=== PATIENT | male | born 1970 | race Caucasian/White ===

== ENCOUNTER → 2023-04-15 14:32 | Outpatient (REF) | payer BC, SELFPAY | LOC: RAD 14:32 | PROVIDERS: ATTENDING PHYSICIAN Family Medicine | DX: S20.211A Contusion of right front wall of thorax, initial encounter (principal) | CPT/HCPCS: 71101 ==

== ENCOUNTER 2023-11-29 00:53 | Emergency (ER) | payer BC, SELFPAY ==
[2023-11-29] VITALS (10 sets, daily range): BP systolic 79–104; BP diastolic 53–72; BMI 27.7
--- NOTE | 2023-11-29 01:20 | ED.GENMED ---
History of Present Illness
<CHELA Fitzpatrick - Last Filed: 11/29/23 02:15>
General
Chief Complaint: Fainting/Passed Out
Source: patient
Exam Limitations: none
Time Seen by Provider: 11/29/23 01:00
Nursing documentation reviewed up to this point in time: agreed with
History of Present Illness
History of Present Illness:
Patient is 53yo M w/ PMH of HTN and HLD who presents to ED after passing out & falling at home. Arrived by EMS. He had about 6 beers while watching sports game tonight. States he was going up to bed when he just passed out w/o warning. Denies
presyncope feelings of dizziness, lightheaded, nausea, fatigue, or vision/hearing changes. Pt denies previous episodes of fainting. Pt hit head during fall. Reports 1 episode of moderate amount of loose stool after passing out. He denies any recent
illness or travel. Notes daughter currently has ear infx.
Past History
<Shar Martinez DO - Last Filed: 11/29/23 02:25>
Past History
ED Past Medical History: Hypercholesterolemia; Negative HTN, NIDDM or MA
Social History
Tobacco: Non-smoker
Alcohol: Occasional
Drug: None
Personal:
Living: with family
Review of Systems
<CHELA Fitzpatrick - Last Filed: 11/29/23 02:15>
Review of Systems
Constitutional: Denies fever, fatigue or chills
Respiratory: Denies cough or trouble breathing
Cardiac: Reports syncope; Denies chest pain or palpitations
ABD/GI: Reports diarrhea; Denies abdominal pain, nausea, vomiting or anorexia
: Reports no symptoms
Musculoskeletal: Denies muscle pain
Neurological: Denies dizzy, headache, weakness or numbness
Phy Exam
<CHELA Fitzpatrick - Last Filed: 11/29/23 02:15>
General Physical Exam
General Habitus: normal
General Mental: confused
ENT Exam
ENT Exam: other (oval-shaped, tennis ball-sized bump of L side of back of head. Mildly tender. )
Eye Exam
Eye Exam: PERRL
Cardiovascular Exam
Cardiovascular Exam: regular rate/rhythm, no edema, no gallop, no JVD and no murmur
Pulmonary Exam
Pulmonary Exam: lungs clear, no respiratory distress, no rales, chest non tender, no crackles and no rhonchi
Neurological Exam
Neurological Exam: alert, no motor deficits and speech normal
<Shar Martinez, - Last Filed: 11/29/23 02:25>
Physical Exam
Physical Exam:
Physical Exam
General: no apparent distress, not acutely ill
Neck: No tongue bite large hematoma on the left posterior skin
Heart: s1/s2 regular rate and rhythm, no murmur. equal radial pulses.
Lungs: no acute respiratory distress. clear bilaterally
Abdomen: Not tender
Neuro: alert and oriented. no focal neurological deficits
Skin: no rash
Psychiatric: well kept. interactive and cooperative
Extremities: no edema.
Course
<Irma Estrada, [facility] - Last Filed: 11/29/23 02:15>
Orders/Labs/Results
Orders:
Orders
11/29/23 01:16
CT Cervical Spine W/o Iv Contr Urgent
Comment:
Reason For Exam: fall
CT Head W/o Iv Contrast Urgent
Comment:
Reason For Exam: fall
11/29/23 01:18
EKG [Electrocardiogram (*1)] Urgent
Reason for Study: Syncope
EKG- Treatment ONCE
11/29/23 01:19
0.9% Sodium Chloride 1000 ml [Nss] 1,000 ml IV BOLUS
11/29/23 01:22
Complete Blood Count/With Diff Urgent
Comprehensive Metabolic Panel Urgent
Abnormal Lab Results
11/29/23
01:22
RBC 4.38 L 10^6/uL
(4.70-6.10)
Hct 37.8 L %
(39.0-52.0)
Absolute Monos (auto) 0.7 H 10^3/uL
(0.1-0.6)
Monocytes % 12.0 H %
(1.7-9.3)
Chloride 110 H mmol/L
(98-107)
Carbon Dioxide 21 L mmol/L
(22-30)
11/29/23 01:22
11/29/23 01:22
Vital Signs
Initial and Last Documented VS:
Initial Vital Signs
Pulse Resp BP Pulse Ox
80 19 79/53 98
11/29/23 01:03 11/29/23 01:03 11/29/23 01:03 11/29/23 01:03
Last Documented Vital Signs
Temp Pulse Resp BP Pulse Ox
97.8 F 83 15 104/72 97
11/29/23 01:04 11/29/23 02:20 11/29/23 02:20 11/29/23 02:20 11/29/23 02:20
Panteralt;Shar Martinez, DO - Last Filed: 11/29/23 02:25>
Orders/Labs/Results
Orders:
Orders
11/29/23 01:16
CT Cervical Spine W/o Iv Contr Urgent
Comment:
Reason For Exam: fall
CT Head W/o Iv Contrast Urgent
Comment:
Reason For Exam: fall
11/29/23 01:18
EKG [Electrocardiogram (*1)] Urgent
Reason for Study: Syncope
EKG- Treatment ONCE
11/29/23 01:19
0.9% Sodium Chloride 1000 ml [Nss] 1,000 ml IV BOLUS
11/29/23 01:22
Complete Blood Count/With Diff Urgent
Comprehensive Metabolic Panel Urgent
Abnormal Lab Results
11/29/23
01:22
RBC 4.38 L 10^6/uL
(4.70-6.10)
Hct 37.8 L %
(39.0-52.0)
Absolute Monos (auto) 0.7 H 10^3/uL
(0.1-0.6)
Monocytes % 12.0 H %
(1.7-9.3)
Chloride 110 H mmol/L
(98-107)
Carbon Dioxide 21 L mmol/L
(22-30)
11/29/23 01:22
11/29/23 01:22
Vital Signs
Initial and Last Documented VS:
Initial Vital Signs
Pulse Resp BP Pulse Ox
80 19 79/53 98
11/29/23 01:03 11/29/23 01:03 11/29/23 01:03 11/29/23 01:03
Last Documented Vital Signs
Temp Pulse Resp BP Pulse Ox
97.8 F 83 15 104/72 97
11/29/23 01:04 11/29/23 02:20 11/29/23 02:20 11/29/23 02:20 11/29/23 02:20
<Shar Martinez DO - Last Filed: 11/29/23 02:25>
MDM/Problems Addressed
Differential Diagnosis Includes:
Vasovagal dehydration alcohol intoxication head trauma, arrhythmia, doubt primary ACS
MDM/Problems Addressed:
Low blood pressure head strike syncope
<CHELA Fitzpatrick - Last Filed: 11/29/23 02:15>
*Critical Care Note
Total Time (30-74mins, 75-104mins- exclusive of procedures): Not Applicable
<Shar Martinez DO - Last Filed: 11/29/23 02:25>
*Radiology
Radiology exam reviewed: radiology read reviewed
*Pulse Oximetry
Patient hypoxic: no
*EKG
Interpreted by ED Provider?: Yes
Interpretation: normal
Comparison EKG: no comparison EKG present
Heart Rate: 78
Rate: normal
Rhythm: sinus
Ischemia: no ischemia
*Distribution Operations Manager Interpretation
Rate: normal
Interpretation: normal
Heart Rate: 78
Rhythm: sinus
<CHELA Fitzpatrick - Last Filed: 11/29/23 02:15>
Update Note
Update Note:
Update, patient has 6 beers and then passed out, struck his head with some diarrhea blood pressure has been soft, will start saline hydration keep on cardiac cath lab radiology technologist EKG noted denies chest pain, no shortness of breath
11/29/2023 2:13 AM - Patient appears well, has better color to him. States he is feeling well except pain where bump on head is. Denies HERRMANN, dizziness, and lightheadedness.
<Shar Martinez DO - Last Filed: 11/29/23 02:25>
Update Note
Update Note:
Update, patient has 6 beers and then passed out, struck his head with some diarrhea blood pressure has been soft, will start saline hydration keep on cardiac cath lab radiology technologist EKG noted denies chest pain, no shortness of breath
11/29/2023 2:13 AM - Patient appears well, has better color to him. States he is feeling well except pain where bump on head is. Denies HERRMANN, dizziness, and lightheadedness.
2:25 AM update patient feeling well vital signs of normalized no chest pain or shortness of breath abdomen soft and nontender reviewed CT scans with him, will drive him home
[facility]
ED Attending Note
<CHELA Fitzpatrick - Last Filed: 11/29/23 02:15>
-
Portions of this chart may have been created with voice recognition software.� Occasional wrong word or��sound alike� substitutions may have occurred due to the inherent limitations of voice recognition software.
Discharge Plan
Departure
Patient Disposition: Home (Routine Discharge)
Date of Disposition: 11/29/23
Time of Disposition: :24
Patient with high blood pressure during this ER visit?: No
Condition: Good
Discharge Problem:
Syncope and collapse, Blunt head trauma
Instructions: Syncope (Fainting) (DC)
Prescriptions:
No Action
amlodipine 5 mg Tablet
5 mg PO DAILY
losartan 100 mg Tablet
100 mg PO DAILY
escitalopram oxalate 20 mg Tablet
20 mg PO DAILY
rosuvastatin 20 mg Tablet
20 mg PO DAILY
Referrals:
Marni Briseno DO [Family Provider] - Next open appointment
Activity Restrictions/Additional Instructions:
Limit your alcohol intake, drink plenty of fluids,
Interventions
Interventions:
*Risk Screen - Suicide Last Done: 11/29/23 01:37
*General Assessment Last Done: 11/29/23 01:04
*Neglect/Abuse Screening Last Done: 11/29/23 01:04
ED- Fall Risk Assessment Last Done: 11/29/23 01:37
*ED COVID-19 Vaccine History Last Done: 11/29/23 01:37
ED- Cardiac Assessment Last Done: 11/29/23 01:30
ED- Neurological Assessment Last Done: 11/29/23 01:30
Discharge Date and Time
Print Language: [id number]
[2023-11-29] MEDS: NSS 1000 IV (01:21)
[2023-11-29 01:31] LABS: % Basophils 0.5 % (0-2); % Eosinophils 1.6 % (0-6); % Immature Granulocytes 0.2 % (0-0.5); % Lymphocytes 34.8 % (20.5-51.1); % Neutrophils 50.9 % (42.2-75.2); Absolute Eosinophils 0.1 10^3/uL (0-0.7); Absolute Lymphocytes 1.9 10^3/uL (1.2-3.4); Absolute Monocytes 0.7 10^3/uL (0.1-0.6); Absolute Neutrophils 2.8 10^3/uL (1.4-6.5); Hematocrit 37.8 % (39.0-52.0); Hemoglobin 13.3 g/dL (13.0-18.0); Mean Corp Hgb Conc. 35.2 g/dL (33.0-37.0); Mean Corpuscular Hgb 30.4 pg (27.0-31.0); Mean Corpuscular Volume 86.3 fL (80.0-94.0); Mean Platelet Volume 9.4 fL (7.4-10.4); Nucleated Red Blood Cells % 0 % (-); Platelet Count 213 10^3/uL (130-400); Red Blood Cell Count 4.38 10^6/uL (4.70-6.10); Red Cell Dist. Width 12.7 % (11.5-14.5); White Blood Cell Count 5.5 10^3/uL (4.8-10.8)
[2023-11-29 01:44] LABS: ALT (SGPT) 21 U/L (0-50); AST (SGOT) 29 U/L (17-59); Albumin 4.2 g/dl (3.5-5.0); Alkaline Phosphatase 54 U/L (38-126); Blood Urea Nitrogen 16 mg/dl (9-20); Calcium 9.3 mg/dl (8.4-10.2); Carbon Dioxide 21 mmol/L (22-30); Chloride 110 mmol/L (98-107); Estimated Creatinine Clearance 74 ml/min; Glucose 94 mg/dl (70-99); Potassium 3.9 mmol/L (3.5-5.1); Sodium 145 mmol/L (135-145); Total Bilirubin 0.5 mg/dl (0.2-1.3); Total Protein 6.6 g/dl (6.3-8.2); eGFR > 60.00
== END 2023-11-29 02:45 | disposition home or self-care (01) ==
LOC: EMR 00:53
PROVIDERS: EMERGENCY PHYSICIAN Emergency Medicine; FAMILY PHYSICIAN Family Medicine
DX: R55 Syncope and collapse (principal); S00.03XA Contusion of scalp, initial encounter; W19.XXXA Unspecified fall, initial encounter; E78.00 Pure hypercholesterolemia, unspecified
CPT/HCPCS: 99284; 70450; 72125; 80053; 85025; 93005